=== PATIENT | male | born 1985 | race Caucasian/White ===

== ENCOUNTER 2022-04-27 09:26 | Emergency (ER) | payer OTHER ==
[~2022-04-27] VITALS: Ht 185.4 cm; Wt 113.4 kg
[2022-04-27] MEDS ORDERED: HYDROCODON-ACE1 EA11 PO (09:44)
[2022-04-27] MEDS ORDERED: CEPHALEXIN500 M1 PO (09:44)
== END 2022-04-27 11:14 | disposition home or self-care (01) ==
LOC: ED 09:26
DX: S61.232A Puncture wound without foreign body of right middle finger without damage to nail, initial encounter (principal); Z23 Encounter for immunization; W26.8XXA Contact with other sharp object(s), not elsewhere classified, initial encounter; Y99.0 Civilian activity done for income or pay
CPT/HCPCS: 73140; 90471; 90715; 96374; 99283-25; J0690